=== PATIENT | male | born 1970 | race African-American/Black ===

== ENCOUNTER 2017-07-05 15:17 | Emergency (ER) | payer MEDICAID ==
[~2017-07-05] VITALS: Ht 175.3 cm; Wt 73.0 kg
[2017-07-05] MEDS ORDERED: TRAMADOL 50MG TABLET PO ONE (16:30)
[2017-07-05] MEDS ORDERED: KETOROLAC 60MG/2ML VIAL IM ONE (16:30)
[2017-07-05 18:20] VITALS: BP 137/67
== END 2017-07-05 18:44 | disposition home or self-care (01) ==
LOC: ER 16:52
DX: M25.561 Pain in right knee (principal); M25.461 Effusion, right knee; X50.1XXA Overexertion from prolonged static or awkward postures, initial encounter; Y93.89 Activity, other specified; Y92.89 Other specified places as the place of occurrence of the external cause; Y99.8 Other external cause status
CPT/HCPCS: 73564; 96372; 99284; J1885; L1830